=== PATIENT | male | born 1990 | race Caucasian/White ===

== ENCOUNTER 2020-04-23 12:26 | Emergency (ER) | payer MEDICAID ==
[~2020-04-23] VITALS: Ht 172.7 cm; Wt 79.3 kg
[2020-04-23 12:33] VITALS: BP 135/83
== END 2020-04-23 13:28 | disposition home or self-care (01) ==
LOC: ER 12:27
DX: S10.96XA Insect bite of unspecified part of neck, initial encounter (principal); F15.90 Other stimulant use, unspecified, uncomplicated; F11.90 Opioid use, unspecified, uncomplicated; F17.200 Nicotine dependence, unspecified, uncomplicated; Z98.890 Other specified postprocedural states; W57.XXXA Bitten or stung by nonvenomous insect and other nonvenomous arthropods, initial encounter; Y93.89 Activity, other specified; Y92.89 Other specified places as the place of occurrence of the external cause; Y99.8 Other external cause status
CPT/HCPCS: 99281